=== PATIENT | female | born 1995 | race African-American/Black ===

== ENCOUNTER 2022-09-10 18:32 | Emergency (ER) | payer MEDICARE ==
[~2022-09-10] VITALS: Ht 172.7 cm; Wt 97.6 kg
[2022-09-10 21:03] LABS: BASOPHILS % 0.6 % (0.0-2.0); EOSINOPHILS % 2.6 % (0.0-5.0); HEMATOCRIT. 32.2 % (36.0-48.0); HEMOGLOBIN. 9.9 g/dL (12.0-16.0); LYMPHOCYTES % 22.6 % (20.0-50.0); MEAN CORPUSCULAR HEMOGLOBIN 21.2 pg (28.0-32.0); MEAN CORPUSCULAR VOLUME 68.7 fL (81.0-99.0); MEAN PLATELET VOLUME 8.4 fl (7.4-10.4); NEUTROPHILS % 68.2 % (40.0-76.0); PLATELET 376 x1000/uL (130-400); RED BLOOD CELL COUNT 4.69 mill/uL (4.2-5.4); RED CELL DISTRIBUTION WIDTH 20.5 % (11.6-14.6)
[2022-09-10 21:09] LABS: CHLORIDE 104 mEq/L (98-107)
[2022-09-10 21:19] LABS: PLATELET ESTIMATE NORMAL
[2022-09-10 21:34] LABS: B-HCG QUANTITATIVE 93675 mIU/mL (<3)
[2022-09-11 04:58] VITALS: BP 127/84
[2022-09-12] MEDS ORDERED: METR-167 MT (13:32)
[2022-09-12] MEDS ORDERED: IBUP-2030 MT (13:52)
== END 2022-09-11 04:50 | disposition home or self-care (01) ==
LOC: ER 19:14
DX: O20.0 Threatened abortion (principal); Z3A.10 10 weeks gestation of pregnancy; O99.511 Diseases of the respiratory system complicating pregnancy, first trimester; Z88.6 Allergy status to analgesic agent
CPT/HCPCS: 36415; 76801; 80053; 81025; 84702; 85025; 86850; 86900; 99284

== ENCOUNTER 2022-09-11 23:26 | Inpatient (IN) | payer MEDICARE ==
[~2022-09-11] VITALS: Ht 165.1 cm; Wt 79.8 kg
[2022-09-12] MEDS ORDERED: SODIUM CHLORIDE 0.9% 1,000 ML IV ONE (00:15)
[2022-09-12 01:16] LABS: HEMATOCRIT. 30.1 % (36.0-48.0); HEMOGLOBIN. 9.6 g/dL (12.0-16.0); MEAN CORPUSCULAR HEMOGLOBIN 21.9 pg (28.0-32.0); MEAN CORPUSCULAR VOLUME 68.7 fL (81.0-99.0); PLATELET 414 x1000/uL (130-400); RED BLOOD CELL COUNT 4.38 mill/uL (4.2-5.4); RED CELL DISTRIBUTION WIDTH 20.1 % (11.6-14.6)
[2022-09-12 01:17] LABS: BASOPHILS % 0.5 % (0.0-2.0); EOSINOPHILS % 1.3 % (0.0-5.0); LYMPHOCYTES % 23.6 % (20.0-50.0); MEAN PLATELET VOLUME 8.8 fl (7.4-10.4); MONOCYTES % 6.1 % (2.0-8.0); NEUTROPHILS % 68.5 % (40.0-76.0)
[2022-09-12] MEDS ORDERED: METHYLERGONOVINE MALEATE 0.2 MG/ML IM NR ×2 (01:30)
[2022-09-12] MEDS ORDERED: MORPHINE SULFATE 2 MG/ML CPJ (NOT FOR IM USE) IV ONE (01:45)
[2022-09-12] MEDS: OXYTOCIN 30 UNITS/500ML NS PMX 500 ML IV NR ×2 (02:04→07:50)
[2022-09-12 02:55] LABS: CHLORIDE 105 mEq/L (98-107)
[2022-09-12 03:25] LABS: B-HCG QUANTITATIVE 67494 mIU/mL (<3)
[2022-09-12] MEDS: OXYTOCIN 30 UNITS/500ML NS PMX 500 ML IV SCH ×2 (06:52→12:05)
[2022-09-12] MEDS ORDERED: PROPOFOL 200MG/20ML VIAL IV ONE ×2 (11:56→12:44)
[2022-09-12] MEDS ORDERED: FENTANYL CITRATE/PF 50MCG/ML 2ML VIAL ONE (11:56)
[2022-09-12] MEDS ORDERED: LIDOCAINE HCL 1% 10 MG/ML 10ML VIAL ONE (11:56)
[2022-09-12] MEDS ORDERED: MIDAZOLAM HCL 2 MG/2 ML VIAL ONE ×2 (11:56→12:13)
[2022-09-12 12:00] VITALS: BP 90/49
[2022-09-12] MEDS ORDERED: PHENYLEPHRINE HCL 10 MG/ML 1ML (IV VIAL) IV ONE (12:23)
[2022-09-12] MEDS ORDERED: ONDANSETRON HCL 4MG/2ML INJ ONE (12:32)
[2022-09-12] MEDS ORDERED: METR-167 MT (13:32)
[2022-09-12] MEDS ORDERED: IBUP-2030 MT (13:52)
[2022-09-12] MEDS: HYDROMORPHONE HCL/PF 2MG/ML CPJ IV PRN ×3 (14:13→14:41)
[2022-09-12 16:20] VITALS: BP 90/49
[2022-09-12 16:21] VITALS: BP 102/56
[2022-09-12 19:22] VITALS: BP 102/56
== END 2022-09-12 20:15 | disposition home or self-care (01) | DRG 543 ==
LOC: ER 23:47 → MICUSO 09-12 01:20 → 6EST 09-12 11:05
PROVIDERS: ADMIT Obstetrics & Gynecology; ATTEND Obstetrics & Gynecology
PROC: 10D17ZZ Extraction of Products of Conception, Retained, Via Natural or Artificial Opening (ICD-10-PCS; principal; 2022-09-12)
DX: O03.4 Incomplete spontaneous abortion without complication (principal); J45.909 Unspecified asthma, uncomplicated; Z20.822 Contact with and (suspected) exposure to COVID-19; Z3A.10 10 weeks gestation of pregnancy; Z88.6 Allergy status to analgesic agent
CPT/HCPCS: 36415; 76801; 80053; 84702; 85025; 86850; 86900; 87426; 88305; 99285; J1170; J2210; J2250; J2270; J2370; J2405; J2704; J3010; J3490; J7030; J2590

== ENCOUNTER 2023-06-07 19:54 | Emergency (ER) | payer MEDICARE ==
[~2023-06-07] VITALS: Ht 172.7 cm; Wt 97.5 kg
[~2023-06-07 19:54] MED LIST: IBUP-2030 MT; METR-167 MT
[2023-06-07 20:02] VITALS: BP 103/62; RESP 18; TEMP 98.1; O2SAT 100
[2023-06-07 20:03] VITALS: PULSE 69
== END 2023-06-08 03:59 | disposition left against medical advice (07) ==
LOC: ER 19:54
DX: Z53.21 Procedure and treatment not carried out due to patient leaving prior to being seen by health care provider (principal)
CPT/HCPCS: 99281